=== PATIENT | male | born 1975 | race Asian ===

== ENCOUNTER 2018-07-09 17:58 | Emergency (ER) | payer SELFPAY ==
[~2018-07-09] VITALS: Ht 175.3 cm; Wt 101.9 kg
[2018-07-09 18:05] VITALS: BP 151/82; PULSE 72; RESP 20; Ht 175.3 cm; Wt 101.9 kg
== END 2018-07-09 19:21 | disposition left against medical advice (07) ==
LOC: FTE 17:58
DX: Z53.21 Procedure and treatment not carried out due to patient leaving prior to being seen by health care provider (principal)